=== PATIENT | male | born 1970 | race Caucasian/White ===

== ENCOUNTER 2020-02-03 01:13 | Emergency (ER) | payer OTHER, BC, SELFPAY ==
[2020-02-03 01:14] VITALS: BP 144/77; PULSE 48; RESP 16; TEMP 36.6; O2SAT 100
--- NOTE | 2020-02-03 01:19 | ED.SYNCOPE ---
HPI - Syncope General Chief Complaint: Syncope Stated Complaint: syncope Time Seen by Provider: 02/03/20 01:18 History of Present Illness HPI narrative: Previously healthy 49 yo male presents from home after a syncopal episode. He got up from bed this evening then the next thing he remembers he awoke on the floor. He does report getting light headed upon standing. He has not been eating or sleeping well recently due to work related stress. He also reports spending time in the heat. No chest pain, palpitations, fever, PLEITEZ. He denies any injury from the fall. Related Data Allergies Allergy/AdvReac Type Severity Reaction Status Date / Time No Known Allergies Allergy Mild Verified 02/05/20 10:29 Review of Systems Constitutional: Constitutional: Denies fever(s) Eyes: Eyes: Denies change in vision ENT: Reports dizziness Cardiovascular: Cardiovascular: Denies chest pain Respiratory: Respiratory: Denies dyspnea Gastrointestinal: Gastrointestinal: Denies abdominal pain Musculoskeletal: Musculoskeletal: Denies back pain Neurologic: Reports syncope, Denies headache(s) and Denies weakness Psychiatric: Psychiatric: Reports anxiety Endocrine: Endocrine: Denies polyuria Hematologic/Lymphatic: Hematologic/Lymphatic: Denies easy bleeding and Denies easy bruising [facility] Family History Family History Father Parkinson disease Malignant neoplasm of prostate Social History Social History Smoking status: Never smoker Alcohol intake: current Exam Const: General: healthy appearing, no acute distress and alert Orientation/consciousness: patient oriented x3 HENMT: Mouth: Yes dry mucous membranes Eyes: Pupils: Equal, round and reactive pupils present Neck: Neck: normal visual inspection and no lymphadenopathy Chest: Chest palpation & inspection: no tenderness Resp: Effort & Inspection: normal respiratory effort Auscultation: clear to auscultation bilaterally, no rales, no rhonchi and no wheezes Cardio: Jugular venous distension: no JVD Rate: regular rate Rhythm: regular rhythm Heart sounds: no murmurs GI: Inspection: non-distended GI Palp: Yes Soft to palpation and No Tenderness to palpation present (GI) Skin: General skin exam: normal color Neuro: General: patient oriented x3 and moves all extremities Speech: normal speech Extrem: General: no edema Psych: Appearance: well kempt Affect: normal affect Course Vital Signs Vital signs: Vital Signs Temperature 36.6 C 02/03/20 01:14 Pulse Rate 48 L 02/03/20 01:14 Respiratory Rate 16 02/03/20 01:14 Blood Pressure 144/77 H 02/03/20 01:14 Pulse Oximetry 100 02/03/20 01:14 Temperature 36.8 C 02/03/20 03:47 Pulse Rate 55 L 02/03/20 03:47 Respiratory Rate 17 02/03/20 03:47 Blood Pressure 140/78 02/03/20 03:47 Pulse Oximetry 100 02/03/20 03:47 MDM - Syncope MDM Narrative Medical decision making narrative: On exam he appears quite dehydrate. Orthostatics negative after hydration. EKG shows significant bradycardia. He was asymptomatic at the time when this was taken, and his blood pressure is stable, so this is unlikely to be of significant concern. Differential Diagnosis Differential diagnosis: Likely syncope due to orthostatic hypotension, vasovagal syncope and dehydration Medical Records Attestation: I reviewed the patient's medical records. Lab Data Result diagrams: 02/03/20 01:22 02/03/20 01:22 Labs: Lab Results 02/03/20 02/03/20 Range/Units 01:22 01:22 WBC 8.2 (4.5-10.0) K/mm3 RBC 5.56 (4.6-6.20) M/mm3 Hgb 15.3 (14.0-18.0) g/dL Hct 46.2 (42.0-52.0) % MCV 83.1 (80-100) fl MCH 27.5 (26-34) pg MCHC 33.1 (32-36) g/dl RDW 13.2 (11.5-14.5) % Plt Count 229 (150-375) k/mm3 MPV 9.1 (7.4-10.4) fl Immature Gran % (Auto) 0.2 (0-0.5)
--- NOTE | 2020-02-03 01:20 | ECG_ITS ---
Measurements Intervals [place] Rate: 47 P: 74 CT: 164 QRS: 66 QRSD: 93 T: 30 QT: 444 QTc: 396 Interpretive Statements SINUS BRADYCARDIA BASELINE ARTIFACT- I, III, AVR, AVL,A VF ABNORMAL ECG Electronically Signed On 02-03-2020 7:47:33 CDT by Carlos Haro D.O.
[2020-02-03 01:25] VITALS: O2SAT 100
[2020-02-03 01:30] LABS: Basophils Absolute Auto 0.1 K/mm3 (0.0-0.1); Basophils Percent Auto 0.6 % (0.2-1.2); Eosinophils Absolute Auto 0.1 K/mm3 (0-0.3); Eosinophils Percent Auto 1.7 % (0-4.4); Hematocrit 46.2 % (42.0-52.0); Hemoglobin 15.3 g/dL (14.0-18.0); Immature Granulocyte Absolute 0.02 K/mm3 (0.00-0.031); Immature Granulocyte Percent A 0.2 % (0-0.5); Lymphocytes Absolute Auto 2.75 K/mm3 (0.9-3.2); Lymphocytes Percent Auto 33.7 % (18.3-44.2); Mean Corpuscular HGB Conc 33.1 g/dl (32-36); Mean Corpuscular Hemoglobin 27.5 pg (26-34); Mean Corpuscular Volume 83.1 fl (80-100); Mean Platelet Volume 9.1 fl (7.4-10.4); Monocytes Absolute Auto 0.7 K/mm3 (0.1-0.6); Monocytes Percent Auto 8.7 % (2.6-8.5); Neutrophils Absolute Auto 4.5 K/mm3 (1.3-6.7); Neutrophils Percent Auto 55.1 % (45.5-73.1); Platelet Count Result 229 k/mm3 (150-375); Red Blood Count 5.56 M/mm3 (4.6-6.20); Red Cell Distribution Width 13.2 % (11.5-14.5); White Blood Count 8.2 K/mm3 (4.5-10.0)
[2020-02-03 01:41] LABS: Blood Urea Nitrogen 20 mg/dL (9-20); Calcium 9.3 mg/dL (8.4-10.2); Carbon Dioxide 25 mmol/L (22-30); Chloride 102 mmol/L (98-107); Estimated CRCL calculation 68 ml/min; Estimated Glomerular Filt Rate > 60; Glucose 120 mg/dL (75-110); Potassium 4.5 mmol/L (3.4-5.0); Sodium 137 mmol/L (137-145)
[2020-02-03] MEDS: SODIUM CHLORIDE 0.9% IV 1,000 ML 999 ML IV CONT (02:14)
[2020-02-03 02:15] VITALS: BP 132/79; BP 149/94; BP 150/90; PULSE 54; PULSE 56; PULSE 61
[2020-02-03 02:35] VITALS: BP 150/90; PULSE 51; PULSE 52; RESP 21; O2SAT 100
[2020-02-03 03:47] VITALS: BP 140/78; PULSE 55; RESP 17; TEMP 36.8; O2SAT 100
== END 2020-02-03 03:49 | disposition home or self-care (01) ==
PROVIDERS: Emergency Provider Emergency Medicine
DX: F41.9 Anxiety disorder, unspecified (principal); E86.0 Dehydration; R00.1 Bradycardia, unspecified
CPT/HCPCS: 36415; 80048; 85025; 93005; 99284; J7030

== ENCOUNTER 2021-03-02 08:54 | Emergency (ER) | payer OTHER, BC, SELFPAY ==
[2021-03-02] VITALS (7 sets, daily range): BP systolic 112–133; BP diastolic 78–87; PULSE 51–60; RESP 18–20; TEMP 36.2; O2SAT 98–100
--- NOTE | ~2021-03-02 | CT_ITS ---
EXAMINATION: CT brain wo con INDICATION: Transient alteration of awareness COMPARISON: None TECHNIQUE: Standard unenhanced head CT. The dose-length product (DLP) was 605.33 mGy-cm. The mA was a djusted according to patient size. Iterative reconstruction technique was employed. FINDINGS: There is no intracranial hemorrhage, acute infarction, or abnormal mass lesion. The ventric les are normal. There is no abnormal mass effect or midline shift. The pruett-white matter differentiat ion is normal. The basal cisterns are patent. The orbits are normal. There is mild mucosal thickening of the paranasal sinuses. IMPRESSION: 1. No acute intracranial abnormality. Reviewed, dictated and finalized at location A.
--- NOTE | ~2021-03-02 | XR_ITS ---
EXAMINATION: XR chest 2V DATE: 03/02/2021 11:37 INDICATION: Transient alteration of awareness TECHNIQUE: PA and lateral views of the chest are obtained. COMPARISON: None available FINDINGS: The lungs are free of acute opacities. There is no pleural effusion or pneumothorax. The ca rdiomediastinal silhouette is normal. The visualized bones and soft tissues are unremarkable. IMPRESSION: 1. No acute cardiopulmonary abnormality. Reviewed, dictated and finalized at location A.
--- NOTE | 2021-03-02 09:04 | ECG_ITS ---
Measurements Intervals [place] Rate: 51 P: 66 [place]: 160 QRS: 62 QRSD: 89 T: 34 QT: 414 QTc: 385 Interpretive Statements SINUS BRADYCARDIA ST ELEVATION IN DIFFUSE LEADS, PROBABLY EARLY REPOLARIZATION BASELINE ARTIFACT- I, III, AVR, AVL BORDERLINE ECG Electronically Signed On 03-02-2021 12:05:47 CDT by Carlos Haro D.O.
[2021-03-02 09:27] LABS: Basophils Percent Auto 0.7 % (0.2-1.2); Eosinophils Absolute Auto 0.2 K/mm3 (0-0.3); Hematocrit 46.7 % (42.0-52.0); Immature Granulocyte Absolute 0.01 K/mm3 (0.00-0.031); Immature Granulocyte Percent A 0.2 % (0-0.5); Lymphocytes Absolute Auto 2.15 K/mm3 (0.9-3.2); Lymphocytes Percent Auto 39.8 % (18.3-44.2); Mean Corpuscular HGB Conc 32.1 g/dl (32-36); Mean Corpuscular Hemoglobin 27.1 pg (26-34); Mean Corpuscular Volume 84.3 fl (80-100); Mean Platelet Volume 9.1 fl (7.4-10.4); Monocytes Absolute Auto 0.6 K/mm3 (0.1-0.6); Monocytes Percent Auto 10.9 % (2.6-8.5); Neutrophils Absolute Auto 2.5 K/mm3 (1.3-6.7); Neutrophils Percent Auto 45.4 % (45.5-73.1); Platelet Count Result 226 k/mm3 (150-375); Red Blood Count 5.54 M/mm3 (4.6-6.20); Red Cell Distribution Width 13.3 % (11.5-14.5); White Blood Count 5.4 K/mm3 (4.5-10.0)
[2021-03-02 09:39] LABS: Anion Gap 4 mmol/L (8-16); Blood Urea Nitrogen 19 mg/dL (9-20); Calcium 9.4 mg/dL (8.4-10.2); Carbon Dioxide 27 mmol/L (22-30); Chloride 103 mmol/L (98-107); Estimated CRCL calculation 67 ml/min; Estimated Glomerular Filt Rate > 60; Glucose 114 mg/dL (65-110); Potassium 4.4 mmol/L (3.4-5.0); Sodium 134 mmol/L (137-145)
--- NOTE | 2021-03-02 11:30 | ED.GENADULT ---
HPI - General Adult General Chief complaint: Syncope Stated complaint: anxiety possible near syncope Time Seen by Provider: 03/02/21 10:09 Source: patient Mode of arrival: EMS Limitations: no limitations History of Present Illness HPI narrative: Patient presents for evaluation after having a syncopal event just prior to arrival. He states he was at worship this morning at 0800 when he experienced chills and sensation that his shoulders were cold . He experienced tunnel vision so he sat down in anticipation that he may pass out. While seated, he had a positive LOC for about one minute. His , who was present at the time and is also here in the room, indicated that she thought he had seizure activity for about twenty seconds. He went into a position. He did not bite his tongue, foam at the mouth or have any fecal/urinary incontinence. Patient indicates that his symptoms were a direct result of stress associated with his job. He states he was seen here last year for a similar event. After that time he was placed on lexapro and xanax. 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 He was anxious about this so took time off work until August of this year. When he returned to school at that time, he took Lexapro and Xanax. He did not like the medications helped him with his anxiety. He recently started the school year and has some anxiety associated with that. Currently, he feels well. He denies any chest pain, shortness of breath and neurological symptoms. He has no acute concerns at this time. Related Data Home Medications Medication Instructions Recorded Confirmed escitalopram oxalate 10 mg PO DAILY 03/02/21 03/02/21 Allergies Allergy/AdvReac Type Severity Reaction Status Date / Time No Known Allergies Allergy Mild Verified 03/02/21 09:02 Review of Systems Review of Systems: CONSTITUTIONAL: Denies fever, chills, or sweats. EYES: Denies visual changes, redness, or discharge. ENT: Denies rhinorrhea, congestion, sore throat, or otalgia. CARDIOVASCULAR: Denies chest pain, palpitations, or edema. RESPIRATORY: Denies cough or dyspnea. GASTROINTESTINAL: Denies abdominal pain, nausea, vomiting, or diarrhea. GENITOURINARY: Denies dysuria or hematuria. SKIN: Denies rash or itching. MUSCULOSKELETAL: Denies back pain, joint pain, or myalgia. NEUROLOGIC: Reports syncopal episode with questionable seizure activity. Denies headache, numbness, dizziness, or weakness. PSYCHIATRIC: Reports anxiety. Denies depression. [facility] Past Medical History Medical History (Updated 03/02/21 @ 13:36 by NATHALIE Waldron, ) Anxiety BMI 25.0-25.9,adult Surgical History Surgical History (Updated 03/02/21 @ 11:31 by NATHALIE Waldron, ) No pertinent past surgical history Family History Family History Father Parkinson disease Malignant neoplasm of prostate Mother Heart disease Hypertension Sibling Pacemaker Social History Social History Smoking status: Never smoker Alcohol intake: current Substance use: never Substance use type: does not use Living arrangements: with family Additional occupation/education comments: teacher Gender identity (if verbalized by the patient): Male Sexual Orientation (if Verbalized by the Patient): Straight or Heterosexual Spiritual care concerns: No Exam Narrative: GENERAL: Well-appearing, well-nourished, and in no acute distress. HEAD: Normocephalic, atraumatic. EYES: PERRLA and EOMI. ENT: Nares clear, no rhinorrhea or epistaxis. Mucous membranes moist. Oropharynx without tonsillar hypertrophy exudate or other lesions. Bilateral TMs pearly pruett nonbulging NECK: Supple. No adenopathy or masses. No carotid bruits or JVD CHEST: Clear to auscultation. No respiratory distress. No wheezes rales or
[2021-03-02 12:22] LABS: Alanine Aminotransferase 34 U/L (4-50); Albumin Level 4.7 g/dL (3.5-5.1); Alkaline Phosphatase 58 U/L (38-126); Aspartate Amino Transferase 28 U/L (17-59); Bilirubin,Total 0.9 mg/dL (0.2-1.3); CRP < 0.5 mg/dL (<1.0); Creatine Kinase 70 U/L (55-170)
[2021-03-02 12:26] LABS: NT Pro B Type Natriuretic Pept 18 pg/mL (5-100); Troponin I < 0.012 ng/mL (0.000-0.034)
[2021-03-02 12:29] LABS: Erythrocyte Sedimentation Rate 4 mm/hr (0-20)
[2021-03-02 13:28] LABS: Free T4 Free Thyroxine 0.87 ng/mL (0.78-2.19)
== END 2021-03-02 13:53 | disposition home or self-care (01) ==
PROVIDERS: Emergency Medicine; Emergency Provider Nurse Practitioner; PCP Family Medicine
DX: R55 Syncope and collapse (principal); R00.1 Bradycardia, unspecified; F41.9 Anxiety disorder, unspecified
CPT/HCPCS: 36415; 70450; 71046; 80048; 80076; 82550; 83880; 84439; 84443; 84484; 85025; 85652; 86140; 93005; 99284